=== PATIENT | female | born 1950 | race Caucasian/White ===

== ENCOUNTER → 2017-11-28 07:21 | Outpatient (CLI) | payer OTHER, SELFPAY ==
--- NOTE | 2017-11-28 | DI.MRI.S_ITS ---
PROCEDURE: MR LUMBAR SPINE WO CON INDICATIONS: LUMBAR BACK PAIN WITH RADICULPATHY TECHNIQUE: Noncontrast sagittal T1 spin echo and T2 fast echo, sagittal STIR, axial T1 and T2 fast spin echo through the lumbar spine. In cases with scoliosis, additional coronal T2 fast spin echo may be performed. COMPARISON: None. FINDINGS: Image quality: Excellent. Alignment and Curvature: Grade 1 anterolisthesis of L3 on L4. Trace anterolisthesis of L4 on L5 Bone Marrow: Marrow is of normal overall signal. No acute vertebral body compression fractures. Spinal Cord: Conus medullaris terminates at the L1 level. Visualized cord demonstrates normal signal and size. Paraspinous Soft Tissues: No paravertebral masses. There are bilateral presumed peripelvic cysts, technically non-specific L1-L2: No canal or foraminal stenosis. L2-L3: Mild broad-based posterior disc bulge and bilateral facet disease. Minimal canal narrowing. Mild left and no definite right foraminal stenoses. L3-L4: Broad-based posterior disc bulge mild facet arthropathy. Posterior annular fissure. There is prominent left paracentral disc extrusion with superior migration to the mid level of L3 vertebral body Ligamentum flavum hypertrophy is also seen. Mild to moderate left-sided canal narrowing at the level of the mid L3 vertebral body. Severe canal stenosis at the L3-L4 disc level with mild partial effacement of the left and right lateral recesses. Severe left and right foraminal narrowing. There is also incidental mild prominence of the dorsal epidural fat L4-L5: Broad-based posterior disc bulge and bilateral facet arthropathy. Mild canal narrowing. Moderate to severe bilateral foraminal narrowing. L5-S1: Bilateral facet arthropathy. No definite canal stenosis. No foraminal narrowing. IMPRESSION: Severe L3-L4 canal stenosis. Left L3-L4 paracentral disc extrusion with superior migration to the mid L3 vertebral body level resulting in mild/moderate left-sided canal narrowing. Severe bilateral L3-L4 foraminal stenoses Moderate to severe bilateral L4-L5 foraminal stenoses. Dictated by: Luis Angel Moore M.D. on 11/28/2017 at 9:18 Approved by: Luis Angel Moore M.D. on 11/28/2017 at 9:25
== END ==
PROVIDERS: Family Provider Physician Assistant Medical; PCP Physician Assistant Medical; Visit Provider Physician Assistant Medical
DX: M48.061 Spinal stenosis, lumbar region without neurogenic claudication (principal); M54.5 Low back pain; M54.16 Radiculopathy, lumbar region
CPT/HCPCS: 72148

== ENCOUNTER 2020-09-19 19:13 | Emergency (ER) | payer MEDICARE, OTHER, SELFPAY ==
[2020-09-19] VITALS (11 sets, daily range): BP systolic 92–132; BP diastolic 55–68; PULSE 68–81; RESP 14–29; TEMP 37.1; O2SAT 96–99; BMI 27.9
--- NOTE | 2020-09-19 19:49 | ED.CHESTPAIN ---
HPI - Chest Pain General Chief Complaint: Chest Pain Stated Complaint: on chemo, now chest pain w/ jaw pain Time Seen by Provider: 09/19/20 19:36 Source: patient and family Mode of arrival: Ambulatory Limitations: no limitations History of Present Illness HPI narrative: 70-year-old female, hypothyroid and currently receiving chemotherapy for cancer at the [facility]. She presents with a chief complaint of an episode of right-sided chest pain with radiation to the right side of her draw that started while at rest on Saturday night and lasted about 2 hours. She denies any provocation or palliation. She has a hard time describing the nature of the pain and states it ranges anywhere between sharp and squeezing. She was not dizzy nor lightheaded. She denies any trouble breathing or diaphoresis. She has had recent travel hand went on a an RV trip, camping in [place]. She denies any history of blood clot. She is currently asymptomatic and has been for days MD complaint: chest pain Onset (ago): day(s) Duration: now resolved Onset: during rest Pain location: right chest Severity: moderate Quality: tightness and sharp Pain radiation: jaw/teeth Relieving factors: nothing Exacerbating factors: nothing Context: recent immobilization and recent travel Treatments prior to arrival chest pain: none Related Data Home Medications Medication Instructions Recorded Confirmed Opdivo 09/19/20 Yervoy 09/19/20 levothyroxine [Synthroid] 125 mcg PO SEEINSTR 09/19/20 09/19/20 levothyroxine [Synthroid] 150 mcg PO SEEINSTR 09/19/20 09/19/20 metformin 500 mg PO BID 09/19/20 09/19/20 Allergies Allergy/AdvReac Type Severity Reaction Status Date / Time amoxicillin Allergy Verified 09/19/20 19:32 Sulfa (Sulfonamide Allergy Verified 09/19/20 19:32 Antibiotics) Review of Systems Constitutional Constitutional: Denies chills, Denies fatigue, Denies fever(s), Denies frequent falls, Denies lethargy and Denies weakness Eyes Eyes: Denies change in vision, Denies eye discharge, Denies irritation and Denies loss of vision ENT Ears, Nose, Mouth, and Throat: Denies change in voice, Denies dizziness, Denies neck pain, Denies sore throat and Denies throat swelling Cardiovascular Cardiovascular: Reports chest pain, Denies irregular heart rhythm, Denies lightheadedness, Denies palpitations, Denies dyspnea, Denies dyspnea on exertion and Denies orthopnea Respiratory Respiratory: Denies cough, Denies dyspnea, Denies dyspnea on exertion and Denies wheezing Gastrointestinal Gastrointestinal: Denies abdominal pain, Denies change in bowel habits, Denies diarrhea, Denies nausea and Denies vomiting Musculoskeletal Musculoskeletal: Denies neck pain and Denies numbness Integumentary/Breasts Skin/Breast: Denies pruritus, Denies erythema, Denies rash and Denies wounds Neurologic Neurologic: Denies behavioral changes, Denies confusion, Denies dizziness, Denies frequent falls, Denies loss of vision, Denies numbness and Denies weakness Psychiatric Psychiatric: Denies anxiety, Denies behavioral changes, Denies confusion, Denies depression, Denies homicidal ideation and Denies suicidal ideation Endocrine Endocrine: Denies fatigue, Denies flushing and Denies palpitations Hematologic/Lymphatic Hematologic/Lymphatic: Denies easy bruising Allergic/Immunologic Allergic/Immunologic: Denies urticaria, Denies throat swelling and Denies wheezing Patient History Social History Smoking Status: Never smoker Smoking Status: Never smoker alcohol intake frequency: other Substance Use Type: does not use Exam Initial Vital Signs Initial Vital Signs: Vital Signs Temperature 98.8 F 09/19/20 19:28 Pulse Rate 76 09/19/20 19:28 Respiratory Rate 17 09/19/20 19:28 Blood Pressure 132/68 09/19/20 19:28 Pulse Oximetry 98 09/19/20 19:28 Const General: cooperative and well developed Nutritional Appearance: well nourished [facility] Head: normocephalic and atraumatic Ears: external ears normal and TM's normal bilaterally Nose: external nose normal and No nasal discharge Face and sinus: sinuses nontender, face symmetric, no sinus tenderness and No dry mucous membranes Mouth: oral mucosae normal and moist mucous membranes Teeth and gingiva: dentition normal Throat: tonsils normal and uvula midline Eyes General: appearance normal, both eyes and all related structures Eyelids: eyelids normal Conjunctivae: conjunctivae normal Sclera: sclerae normal Pupils: PERRL EOM: EOM intact bilaterally Neck Neck: normal visual inspection, trachea midline, No lymphadenopathy, No midline deformity and No JVD Lymphatic: No lymphedema Chest Chest: normal inspection of the chest Resp Effort & Inspection: normal respiratory effort, able to speak in complete sentences, no respiratory distress and no use of accessory muscles Auscultation: clear to auscultation bilaterally, no rales, no rhonchi and no wheezes Cardio Rate: regular rate Rhythm: regular rhythm Heart Sounds: no click, no gallops, no murmurs and no rubs Pulses: normal peripheral pulses GI Inspection: non-distended Palpation: soft, no hepatosplenomegaly, No guarding, No pulsatile mass and No tender Auscultation: normal bowel sounds Back/Spine/Pelvis Back: No CVA tenderness Cervical Spine: cervical ROM normal and No pain with cervical ROM Thoracic/Lumbar Spine: thoracic and lumbar spine normal to inspection Skin General: no rashes or lesions noted, No jaundice and No petechiae Neuro General: patient alert, patient oriented x3, gait normal and no focal motor deficits Speech: speech normal Extrem General: full ROM, no clubbing, cyanosis or edema, no pedal edema and no calf tenderness Psych Appearance: well kempt Mental Status: mental status grossly normal Attitude: cooperative Thought Content: normal and suicidality Judgment: judgment good Course Orders Ordered: ED Orders 09/19/20 21:04 CT angio chest PE protocol Stat Discontinued Medications Aspirin (Aspirin 81 Mg Chew Tab) 324 mg PO NOW ONE Stop: 09/19/20 19:51 Last Admin: 09/19/20 19:55 Dose: 324 mg Documented by: DERIAN Heparin Sodium (Porcine) (Heparin 500 Unit/5 Ml Port Flush) 500 unit IV PRN PRN PRN Reason: Flush Last Admin: 09/20/20 00:05 Dose: 500 unit Documented by: DERIAN Sodium Chloride (Normal Saline 0.9%) 1,000 mls @ 150 mls/hr IV CONT BERNABE Last Infusion: 09/20/20 00:12 Dose: 0 mls/hr Documented by: Admin: 09/19/20 19:56 Dose: 150 mls/hr Documented by: DERIAN Vital Signs Vital signs: Vital Signs - 8 hr 09/19/20 21:30 09/19/20 22:00 09/19/20 22:30 Temperature Pulse Rate 76 72 73 Respiratory Rate 24 16 Blood Pressure Pulse Oximetry 97 97 96 09/19/20 22:56 09/19/20 23:00 09/19/20 23:01 Temperature Pulse Rate 71 68 76 Respiratory Rate 25 H 16 14 Blood Pressure 92/55 L 105/58 L Pulse Oximetry 97 99 98 09/19/20 23:30 09/20/20 00:56 Temperature 98.7 F Pulse Rate 73 70 Respiratory Rate 25 H 16 Blood Pressure 107/62 100/55 L Pulse Oximetry 97 97 MDM - Chest Pain Lab Data Result diagrams: 09/19/20 19:35 09/19/20 19:35 Labs: Lab Results 09/19/20 09/19/20 09/19/20 Range/Units 19:35 19:35 19:35 WBC 9.7 (4.5-11.0) X10^3/uL RBC 3.41 L (4.0-5.2) X10^6/uL Hgb 8.1 L (12.0-16.0) g/dL Hct 26.8 L (36-46) % MCV 78.5 L (80-100) fL MCH 23.8 L (26-34) PG MCHC 30.3 (30-36) % RDW 16.9 H (11.6-14.8) % Plt Count 341 (150-400) X10^3/uL Neut % (Auto) 64.0 (50-75) % Lymph % (Auto) 23.9 L (25-40) % Woodward % (Auto) 8.3 (3-14) % Eos % (Auto) 2.9 (2-4) % Baso % (Auto) 0.9 (0-2) % Neut # (Auto) 6200 (8793-4505) /uL Lymph # (Auto) 2300 (3250-7965) /uL Woodward # (Auto) 800 (0-900) /uL Eos # (Auto) 300 (0-450) /uL Baso # (Auto) 100 (0-100) /uL D-Dimer 365 H (<230) ng/mL Sodium 137 (137-145) mmol/L Potassium 4.1 (3.4-5.1) mmol/L Chloride 104 (98-107) mmol/L Carbon Dioxide 26 (22-32) mmol/L BUN 15 (7-17) mg/dL Creatinine 0.63 (0.52-1.04) mg/dL Estimated GFR > 60.0 (>60) mL/min BUN/Creatinine Ratio 23.8 H (6-22) Glucose 137 H (80-110) mg/dL Calcium 10.0 (8.4-10.2) mg/dL Total Bilirubin 0.1 L (0.2-1.3) mg/dL AST 21 (14-36) IU/L ALT 11 (<35) IU/L Alkaline Phosphatase 60 (38-126) U/L Total Creatine Kinase 21 L (30-135) U/L CK-MB (CK-2) TNP CK-MB (CK-2) Rel Index TNP Troponin I < 0.012 (0.01-0.034) ng/mL NT-Pro-B Natriuret Pep 121 (<125) pg/mL Total Protein 6.8 (6.3-8.2) g/dL Albumin 3.8 (3.5-5.0) g/dL Globulin 3.0 (1.7-4.1) g/dL Albumin/Globulin Ratio 1.3 (1.0-2.8) Lipase 352 H (23-300) U/L Imaging Data CT scan - chest: Radiologist's Impression: [address] [id number] Scan ReportSigned Patient: Mercedes Garibay R#: [id number]: 1950cct:[id number]/Sex: 70 / FDate of Service: 09/19/20Loc: EDAccession Number: [id number] Procedure: CT angio chest PE protocol Ordering Provider: Grey Diamond D.O. PROCEDURE: CT ANGIO CHEST PE PROTOCOL INDICATIONS: chest pain, neck pain, travel, cancer TECHNIQUE: After the administration of intravenous contrast, 2 mm thick sections acquired from the pulmonary apices to the posterior costophrenic angles. 3-dimensional maximum intensity projection (MIP) coronal and sagittal reformats were then acquired through the thorax. For radiation dose reduction, the following was used: automated exposure control, adjustment of mA and/or kV according to patient size. COMPARISON: Outside Film, CT, CT CHEST ABDOMEN PELVIS WITH CONTRAST, 11/09/2019, 13:36. FINDINGS: Image quality: Excellent. Pulmonary arteries: Pulmonary arteries are normal in size, and demonstrate no intraluminal filling defects to suggest central pulmonary embolism. Lungs and pleura: Compared to prior CT study in 2020, there is interval significant increase in size of patient's known medial right upper lobe mass adjacent to right hilum currently measures up to 3.6 x 4.6 x 2.9 cm in size series 5, image 113 and series 6, image 23. This mass was previously measured at 3.2 x 1.9 x 2.1 cm in size. Mass effect on the adjacent right hilar structures are seen progressed since previous study. 1.4 x 1.6 x 2.1 cm solid mass with spiculated margin is noted adjacent to lateral pleura of right upper lobe series 5, image 129 and series 6, image 26. This was previously measured at 8 mm in size. 1 cm solid nodule is noted in posterior lateral left upper lobe series 5, image 94 new since previous study. 6 mm solid nodule in posterior left lower lobe series 5, image 111, also new since previous study. Ill-defined masslike consolidation in anterolateral aspect of left lingular segment measures up to 1.2 x 1 cm in size series 5, image 185 new since previous study. Patient's known lobulated soft tissue density mass adjacent to lateral pleura of left lung base is no longer seen. There is ill-defined masslike consolidation seen in this region now measures in aggregate 3.6 x 3.3 x 1.7 cm in size series 5, image 198 and series 6, image 29. Scattered atelectasis at bilateral lower lung noyola are seen. No pleural effusions or pneumothorax. Central and peripheral airways are patent. Mediastinum: Heart size is normal, without pericardial effusion. Borderline enlarged mediastinal and right hilar lymph nodes are seen measures 8-9 mm in size. Thoracic aorta is normal in caliber and enhancement. Esophagus is normal in caliber, with a small hiatal hernia. Bones and chest wall: No suspicious bony lesions. No acute compression fracture or spondylolisthesis in thoracic spine. Thyroid gland is within normal limits. No axillary or supraclavicular adenopathy. Abdomen: Multiple hypodense lesions are seen scattered in right and left hepatic lobes now measures up to 9 x 6.2 cm in size in medial segment of left hepatic lobe series 4, image 156 and up to 3.2 x 3.6 cm in size in posterior segment of right hepatic lobe series 4, image 126 . These are new since 2020 study and are suggestive of extensive liver metastases. IMPRESSION: 1. No evidence of pulmonary emboli. No thoracic aortic aneurysm or dissection. 2. Previously noted large lobulated solid mass in left lateral lung base is no longer seen with ill-defined masslike consolidation seen in this region as above which may represent post treatment changes. 3. Interval significant increase in medial right upper lobe mass extending to right hilar region as described above with significant mass effect on adjacent right hilar structures. Interval significant increase in other pulmonary nodules and masses seen on previous study as described above. Interval development of new solid nodule seen in left upper and lower lobes as above. Finding is suggestive of progression of pulmonary metastases. 4. Interval development of multiple hypodense lesions scattered in right and left hepatic lobe most prominent in left hepatic lobe as above suggestive of extensive liver metastases. This is a new finding since previous study. 5. Subcentimeter lymph nodes seen in mediastinum and right hilar region, metastatic lymphadenopathy cannot be excluded. Dictated by: Calixto Barton M.D. on 09/19/2020 at 21:54 Approved by: Calixto Barton M.D. on 09/19/2020 at 22:07 [facility] Narrative Medical decision making narrative: Multiple causes of chest pain considered including NV, PE, pneumothorax, pneumonia, aortic dissection, and pleurisy. Patient reports no radiation, no diaphoresis, no provocation with exertion, and no vomiting Patient has been symptom-free for the entire did the visit and also the past few days. Labs and EKGs are nonischemic. CT demonstrates no pulmonary embolism, pleural effusion or pneumonia. It does demonstrate interval in [place] mint of disease process by our imaging but patient states my description of today's finding is not on like which she has been hearing by her doctors. Given her brief episode of discomfort many days ago and complete resolution symptoms since then it seems unlikely that this new change on CT is directly contributing. Patient's symptoms improved over duration of stay with above-stated therapies. Findings and discharge diagnosis discussed with patient/family followed by verbalization of understanding Return precautions discussed with patient/family whom verbalize understanding. Discharge Plan Departure Patient Disposition: Home Clinical Impression: Atypical chest pain Instructions: DI for Atypical Chest Pain Activity Restrictions/Additional Instructions: *You have been diagnosed with [atypical chest pain, no evidence of cardiac ischemia or pulmonary embolism.] *What to do: *Please continue to take your regular medications as directed. [ ] New medication prescriptions sent to your pharmacy: [ ] [ ] New medication written as a paper prescription [x ] No new medications given *Please follow up with your primary care provider in 2-3 days, call for an appointment. Let them know you were seen in the Emergency Department and that we ask that you be seen in follow up. We will electronically transmit a record of today's note if your PCP is in our system *If you do not have a primary care provider please contact the [facility] Resource line at [phone]. They will ask some questions about your medical history and help get you set up with a doctor in the community. *Return to Emergency Department if you should have any new, worsening or concerning symptoms, such as [fever greater than 101 F, shaking chills, worsening pain, persistent vomiting or other bothersome symptoms] Prescriptions: No Action levothyroxine [Synthroid] 125 mcg tablet 125 mcg PO SEEINSTR RF: 0 levothyroxine [Synthroid] 150 mcg tablet 150 mcg PO SEEINSTR RF: 0 metformin 500 mg tablet 500 mg PO BID RF: 0 Opdivo RF: 0 Yervoy RF: 0 Referrals: Vanessa Jean PA-C [Primary Care Provider] -
--- NOTE | 2020-09-19 19:50 | DI.RAD.S_ITS ---
PROCEDURE: XR CHEST 1V INDICATIONS: chest pain TECHNIQUE: One view of the chest was acquired. COMPARISON: Outside Film, CT, CT CHEST ABDOMEN PELVIS WITH CONTRAST, 11/09/2019, 13:36. FINDINGS: Surgical changes and devices: Right chest wall Port-A-Cath tip is in SVC. Lungs and pleura: 3.3 x 4.3 cm solid oval mass is noted in medial aspect of right upper lobe adjacent to right hilum seen on previous CT of chest studies. No focal infiltrate. No pleural effusions or pneumothorax. Mediastinum: Mediastinal contours appear normal. Heart size is normal. Bones and chest wall: No suspicious bony lesions. Overlying soft tissues appear unremarkable. IMPRESSION: Right upper lobe mass as above. No focal infiltrate, pleural effusion or pneumothorax. Dictated by: Calixto Barton M.D. on 09/19/2020 at 20:12 Approved by: Calixto Barton M.D. on 09/19/2020 at 20:13
[2020-09-19] MEDS: ASPIRIN 81 MG CHEW TAB 324 MG PO (19:55)
[2020-09-19] MEDS: SODIUM CHLORIDE 0.9% 1,000 ML 150 ML IV (19:56)
[2020-09-19 20:14] LABS: Add Manual Diff / Slide Review NO; Basophils Absolute Auto 100 /uL (0-100); Basophils Percent Auto 0.9 % (0-2); Eosinophils Absolute Auto 300 /uL (0-450); Eosinophils Percent Auto 2.9 % (2-4); Hematocrit 26.8 % (36-46); Hemoglobin 8.1 g/dL (12.0-16.0); Lymphocytes Absolute Auto 2300 /uL (1100-4500); Lymphocytes Percent Auto 23.9 % (25-40); Mean Corpuscular HGB Conc 30.3 % (30-36); Mean Corpuscular Hemoglobin 23.8 PG (26-34); Mean Corpuscular Volume 78.5 fL (80-100); Monocytes Absolute Auto 800 /uL (0-900); Monocytes Percent Auto 8.3 % (3-14); Neutrophils Absolute Auto 6200 /uL (1500-7000); Platelet Count 341 X10^3/uL (150-400); Red Blood Cell Count 3.41 X10^6/uL (4.0-5.2); Red Cell Distribution Width 16.9 % (11.6-14.8); White Blood Cell Count 9.7 X10^3/uL (4.5-11.0)
[2020-09-19 20:20] LABS: Alanine Aminotransferase 11 IU/L (<35); Albumin 3.8 g/dL (3.5-5.0); Albumin Globulin Ratio 1.3 (1.0-2.8); Alkaline Phosphatase 60 U/L (38-126); Aspartate Aminotransferase 21 IU/L (14-36); BUN Creatinine Ratio 23.8 (6-22); Bilirubin Total 0.1 mg/dL (0.2-1.3); Blood Urea Nitrogen 15 mg/dL (7-17); Carbon Dioxide 26 mmol/L (22-32); Chloride 104 mmol/L (98-107); Creatine Kinase 21 U/L (30-135); D Dimer 365 ng/mL (<230); Estimated Glomerular Filt Rate > 60.0 mL/min (>60); Glucose 137 mg/dL (80-110); HEMOLYSIS < 15 (0-50); Lipase 352 U/L (23-300); Potassium 4.1 mmol/L (3.4-5.1); Sodium 137 mmol/L (137-145); Total Protein 6.8 g/dL (6.3-8.2)
[2020-09-19 20:27] LABS: NT-proBNP (BNP-Adult 18+) 121 pg/mL (<125)
[2020-09-19 20:31] LABS: Troponin I < 0.012 ng/mL (0.01-0.034)
--- NOTE | 2020-09-19 21:04 | DI.CT.S_ITS ---
PROCEDURE: CT ANGIO CHEST PE PROTOCOL INDICATIONS: chest pain, neck pain, travel, cancer TECHNIQUE: After the administration of intravenous contrast, 2 mm thick sections acquired from the pulmonary apices to the posterior costophrenic angles. 3-dimensional maximum intensity projection (MIP) coronal and sagittal reformats were then acquired through the thorax. For radiation dose reduction, the following was used: automated exposure control, adjustment of mA and/or kV according to patient size. COMPARISON: Outside Film, CT, CT CHEST ABDOMEN PELVIS WITH CONTRAST, 11/09/2019, 13:36. FINDINGS: Image quality: Excellent. Pulmonary arteries: Pulmonary arteries are normal in size, and demonstrate no intraluminal filling defects to suggest central pulmonary embolism. Lungs and pleura: Compared to prior CT study in 2020, there is interval significant increase in size of patient's known medial right upper lobe mass adjacent to right hilum currently measures up to 3.6 x 4.6 x 2.9 cm in size series 5, image 113 and series 6, image 23. This mass was previously measured at 3.2 x 1.9 x 2.1 cm in size. Mass effect on the adjacent right hilar structures are seen progressed since previous study. 1.4 x 1.6 x 2.1 cm solid mass with spiculated margin is noted adjacent to lateral pleura of right upper lobe series 5, image 129 and series 6, image 26. This was previously measured at 8 mm in size. 1 cm solid nodule is noted in posterior lateral left upper lobe series 5, image 94 new since previous study. 6 mm solid nodule in posterior left lower lobe series 5, image 111, also new since previous study. Ill-defined masslike consolidation in anterolateral aspect of left lingular segment measures up to 1.2 x 1 cm in size series 5, image 185 new since previous study. Patient's known lobulated soft tissue density mass adjacent to lateral pleura of left lung base is no longer seen. There is ill-defined masslike consolidation seen in this region now measures in aggregate 3.6 x 3.3 x 1.7 cm in size series 5, image 198 and series 6, image 29. Scattered atelectasis at bilateral lower lung noyola are seen. No pleural effusions or pneumothorax. Central and peripheral airways are patent. Mediastinum: Heart size is normal, without pericardial effusion. Borderline enlarged mediastinal and right hilar lymph nodes are seen measures 8-9 mm in size. Thoracic aorta is normal in caliber and enhancement. Esophagus is normal in caliber, with a small hiatal hernia. Bones and chest wall: No suspicious bony lesions. No acute compression fracture or spondylolisthesis in thoracic spine. Thyroid gland is within normal limits. No axillary or supraclavicular adenopathy. Abdomen: Multiple hypodense lesions are seen scattered in right and left hepatic lobes now measures up to 9 x 6.2 cm in size in medial segment of left hepatic lobe series 4, image 156 and up to 3.2 x 3.6 cm in size in posterior segment of right hepatic lobe series 4, image 126 . These are new since 2020 study and are suggestive of extensive liver metastases. IMPRESSION: 1. No evidence of pulmonary emboli. No thoracic aortic aneurysm or dissection. 2. Previously noted large lobulated solid mass in left lateral lung base is no longer seen with ill-defined masslike consolidation seen in this region as above which may represent post treatment changes. 3. Interval significant increase in medial right upper lobe mass extending to right hilar region as described above with significant mass effect on adjacent right hilar structures. Interval significant increase in other pulmonary nodules and masses seen on previous study as described above. Interval development of new solid nodule seen in left upper and lower lobes as above. Finding is suggestive of progression of pulmonary metastases. 4. Interval development of multiple hypodense lesions scattered in right and left hepatic lobe most prominent in left hepatic lobe as above suggestive of extensive liver metastases. This is a new finding since previous study. 5. Subcentimeter lymph nodes seen in mediastinum and right hilar region, metastatic lymphadenopathy cannot be excluded. Dictated by: Calixto Barton M.D. on 09/19/2020 at 21:54 Approved by: Calixto Barton M.D. on 09/19/2020 at 22:07
[2020-09-20 00:56] VITALS: BP 100/55; PULSE 70; RESP 16; TEMP 37.1; O2SAT 97
== END 2020-09-20 00:58 | disposition home or self-care (01) ==
PROVIDERS: Emergency Provider Emergency Medicine; Family Provider Physician Assistant Medical; PCP Physician Assistant Medical
DX: R07.89 Other chest pain (principal)
CPT/HCPCS: 36415; 71045; 71275; 80053; 82550; 83690; 83880; 84484; 85025; 85379; 93005; 93010; 96360; 96361; 99284; J1642; Q9967

== ENCOUNTER → 2020-10-21 10:39 | Outpatient (CLI) | payer MEDICARE, OTHER, SELFPAY ==
--- NOTE | 2020-10-21 | DI.US.S_ITS ---
PROCEDURE: US PERIPH VENOUS LOW EXTREM BI INDICATIONS: EDEMA TECHNIQUE: Real-time imaging, as well as color and pulse Doppler interrogation, were performed of the deep veins of both legs from the inguinal ligament to the popliteal fossa. COMPARISON: None. FINDINGS: Right: The common femoral, femoral and popliteal veins are normally compressible, and free of intraluminal thrombus. Color and pulse Doppler demonstrate normal phasic intravascular flow. There is normal augmentation response to distal compression maneuver. Left: The common femoral, femoral and popliteal veins are normally compressible, and free of intraluminal thrombus. Color and pulse Doppler demonstrate normal phasic intravascular flow. There is normal augmentation response to distal compression maneuver. A minimally complex left popliteal fossa Llamas's cyst is seen measuring 4.3 x 1.7 x 1.2 cm. IMPRESSION: 1. No evidence of DVT. 2. Left popliteal cyst. Dictated by: Helder Russell [facility] Interpreted: Dio Mccarthy MD on 10/21/2020 at 12:08 Transcribed by: [email or web address] on 10/21/2020 at 12:08 Approved by: Pepito Mccarthy M.D. on 10/25/2020 at 11:25
== END ==
PROVIDERS: Family Provider Physician Assistant Medical; PCP Internal Medicine; Referring Provider Dietitian, Registered; Visit Provider Dietitian, Registered
DX: R60.0 Localized edema (principal); C49.9 Malignant neoplasm of connective and soft tissue, unspecified; M71.22 Synovial cyst of popliteal space [Baker], left knee
CPT/HCPCS: 93970